=== PATIENT | male | born 1945 | race Caucasian/White ===

== ENCOUNTER → 2017-01-08 | Outpatient (CLI) | payer OTHER ==
[~2017-01-08] MED LIST: PERCOCET 5/31 TABLET PO
[2017-01-08 16:43] LABS: APPEARANCE CLEAR/COLORLESS; RED CELL AREA COUNTED 18; RED CELL COUNT 0 /MM^3 (0-1); RED CELL DILUTION 1; WBC AREA COUNTED 18; WBC DILUTION 1; WHITE CELL COUNT 7 /MM^3 (0-5); WHITE CELL RAW COUNT 13
[2017-01-08 16:44] LABS: CSF EOSINOPHILS 0 % (0-25); MONO RAW COUNT 40; MONONUCLEAR WBC'S 100 % (50-90); POLYNUCLEAR WBC'S 0 % (0-3)
[2017-01-09 22:40] LABS: Albumin, Serum 4.3 g/dL (3.2-4.6); IgG Index, CSF 0.54 index (<0.66)
== END | disposition home or self-care (01) ==
LOC: RAD 14:22
PROVIDERS: Physician Assistant
PROC: 009U3ZZ Drainage of Spinal Canal, Percutaneous Approach (ICD-10-PCS; principal; 2017-01-08)
DX: G93.89 Other specified disorders of brain (principal)
CPT/HCPCS: 62270; 77003; 82040 90; 82042 90; 82784 90; 82945; 83916 90; 84157; 89051

== ENCOUNTER 2017-04-08 15:20 | Emergency (ER) | payer OTHER ==
[~2017-04-08] VITALS: Ht 180.3 cm; Wt 88.9 kg
[2017-04-08 15:47] LABS: POINT-OF-CARE METER ID UU13113747
[2017-04-08 16:17] LABS: MCH 29.5 PG (29.0-34.0); MCHC 33.4 G/DL (30.0-36.0); MCV 88.3 FL (86-99); MEAN PLAT.VOLUME 10.7 uM^3 (9.0-12.4); PLATELET COUNT 219 K/uL (156-360); RBC DIS.WIDTH-CV 12.9 % (11.8-14.6); RBC DIS.WIDTH-SD 41.7 % (39-53); RED BLOOD COUNT 5.32 M/uL (4.00-5.50); WHITE BLOOD COUNT 10.8 K/uL (4.1-10.2)
[2017-04-08 16:26] LABS: CHLORIDE 104 mEq/L (99-109); POTASSIUM 4.3 mEq/L (3.7-5.4); SODIUM 141 mEq/L (136-147)
[2017-04-08 16:27] LABS: GLUCOSE 67 mg/dL (70-99)
[2017-04-08 16:29] LABS: ANION GAP 9 MEQ/L (2-14)
[2017-04-08 16:31] LABS: GFR ESTIMATE (CALCULATED) > 59 mL/min/
[2017-04-08 16:32] LABS: UREA NITROGEN (BUN) 20 mg/dL (9-23)
[2017-04-08 17:34] LABS: POINT-OF-CARE METER ID UU13113747
[2017-04-08 19:10] VITALS: BP 127/76
[2017-04-09 10:54] LABS: POINT-OF-CARE METER ID UU13113747
== END 2017-04-08 19:12 | disposition home or self-care (01) ==
LOC: EME 15:20
PROVIDERS: Emergency Medicine
DX: E11.649 Type 2 diabetes mellitus with hypoglycemia without coma (principal); Z79.84 Long term (current) use of oral hypoglycemic drugs; R29.6 Repeated falls; I10 Essential (primary) hypertension; F02.80 Dementia in other diseases classified elsewhere, unspecified severity, without behavioral disturbance, psychotic disturbance, mood disturbance, and anxiety; G20 Parkinson's disease; E78.5 Hyperlipidemia, unspecified; Z88.0 Allergy status to penicillin; Z88.6 Allergy status to analgesic agent; Z87.891 Personal history of nicotine dependence
CPT/HCPCS: 70450; 80048; 82948; 85027; 99281; 99284